=== PATIENT | female | born 1975 | race Caucasian/White ===

== ENCOUNTER 2016-07-02 17:54 | Emergency (ER) | payer OTHER ==
[~2016-07-02] VITALS: Ht 154.9 cm; Wt 54.4 kg
[~2016-07-02 17:54] MED LIST: CRESTOR10 M1 PO; POLYTRIM EYE DR10 ML OPH
--- NOTE | 2016-07-02 18:05 | ED GENERAL ADULT ---
History of Present Illness General Chief Complaint: General Adult Stated Complaint: EXPOSURE TO CYANIDE Source: patient Exam Limitations: no limitations Vital Signs & Intake/Output Vital Signs & Intake/Output Vital Signs Date Time Temp Pulse Resp B/P Pulse O2 O2 Flow FiO2 Ox Delivery Rate 07/02 1759 98.1 79 18 121/83 99 Room Air Allergies Coded Allergies: No Known Allergies (07/02/16) Triage Note: TRIAGE: PT TO ER C/C HEADACHE PAIN SINCE BREATHING IN CYANIDE AT 11 AM. STATES SHE BREATHED IN SOME VAPORS FROM CYANIDE THAT SHE WAS USING TO DO A TEST. WHEN ASKED IF IT IS A WORK RELATED INJURY RESPONDS THAT SHE DOES NOT WISH TO FILL OUT A WORK INJURY REPORT. Triage Nurses Notes Reviewed? yes Onset: Abrupt Duration: 7 hrs Timing: single episode today Injury Environment: work Severity: moderate No Modifying Factors: none Associated Symptoms: nausea : No Patient currently breastfeeds: No HPI: This is a 40-year-old female who presents to the ER for chief complaint of frontal headache rated 4 out of 10 as well as some nausea after exposure to fumes of cyanide this morning. 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 She states that generally the test tube should be fully entered the foot but she Did closer to her and states that when she took up with the cyanide she immediately developed a headache. She had a persistent headache all day long. It has not worsened. No chest pain or shortness of breath. No cough. When she was driving home she called her mother who is a nurse who encouraged her to come to the hospital for evaluation. The patient states that she spoke to poison control and the control systems developer advised her to come to the hospital to have a lactic acid drawn. Patient is without any respiratory symptoms. Headache is rated 4-10 as well as some mild nausea. Patient does not want to be medicated for either of those things. History of similar exposures in the past. She states that usually the headache would've gone away by now. No visual symptoms. She had some eye itching in her left eye earlier which is since resolved. (MOHINDER SOTOMAYOR,DILEEP) Reconcile Medications Naproxen Sodium 550 MG TABLET 1 TAB PO BID PRN MENSTRUAL CRAMPS (Reported) Ondansetron (Zofran Odt) 4 MG TAB.RAPDIS 1 TAB SL TID PRN NAUSEA Rosuvastatin Calcium (Crestor) 10 MG TABLET 1 TAB PO DAILY CHOLESTEROL ( Reported) (VITA SOTOMAYOR,ALESSIA Kidd) Past History Travel History Traveled to [place] past 21 day No Medical History Any Pertinent Medical History? see below for history Neurological: NONE EENT: NONE Cardiovascular: hyperlipidemia Respiratory: NONE Gastrointestinal: NONE Hepatic: NONE Renal: NONE Musculoskeletal: NONE Psychiatric: NONE Endocrine: NONE Blood Disorders: NONE Cancer(s): NONE CARE CONSULTANT/Reproductive: NONE Surgical History Surgical History: non-contributory Psychosocial History What is your primary language Macedonian Tobacco Use: Never used ETOH Use: denies use Illicit Drug Use: denies illicit drug use Family History Hx Contributory? No (DILEEP VINES MD) Review of Systems Review of Systems Constitutional: Denies: chills, fever. EENTM: Reports: see HPI. Respiratory: Denies: cough, short of breath. Cardiovascular: Denies: chest pain, palpitations. GI: Reports: nausea. Denies: abdominal pain. Genitourinary: Reports: no symptoms. Musculoskeletal: Reports: no symptoms. Skin: Reports: no symptoms. Neurological/Psychological: Reports: headache. Denies: numbness, tingling. Hematologic/Endocrine: Denies: bleeding. Immunologic/Allergic: Reports: no symptoms. All Other Systems: Reviewed and Negative (DILEEP VINES MD) Physical Exam Physical Exam General Appearance: well developed/nourished, alert, awake, anxious Head: atraumatic, normal appearance Eyes: Bilateral: normal appearance, PERRL, EOMI. Ears, Nose, Throat: normal pharynx, normal ENT inspection Neck: normal inspection, supple, full range of motion Respiratory: normal breath sounds, chest non-tender, no respiratory distress Cardiovascular: regular rate/rhythm Peripheral Pulses: 2+ radial (R), 2+ radial (L) Gastrointestinal: normal bowel sounds, soft, non-tender Extremities: normal inspection, normal capillary refill, normal range of motion, no edema Neurologic/Psych: no motor/sensory deficits, awake, alert, oriented x 3, ANXIOUS Skin: intact, normal color, warm/dry Core Measures ACS in differential dx? No CVA/TIA Diagnosis: No Severe Sepsis Present: No Septic Shock Present: No (DILEEP VINES MD) Progress Differential Diagnoses I considered the following diagnoses in my evaluation of the patient: [CYANIDE EXPOSURE, CYANIDE TOXICITY] Plan of Care: Orders Procedure Date/time Status MIXED VENOUS BLOOD GAS (GEN) 07/02 1810 Active LACTIC ACID 07/02 1810 Complete COMPREHENSIVE METABOLIC PANEL 07/02 1810 Complete CBC WITHOUT DIFFERENTIAL 07/02 1810 Complete Laboratory Tests 07/02/161944: Bicarbonate Actual 24, Mixed VBG pH 7.43 H, Mixed VBG pCO2 37 L, Mixed VBG O2 Saturation 29 L, Carboxyhemoglobin 0.2 L, O2 Concentration % R/A, Phlebotomy Draw Site VENOUS 07/02/161831: Anion Gap 12, Estimated GFR > 60, BUN/Creatinine Ratio 20.0, Glucose 94, Lactic Acid 0.9, Calcium 9.7, Total Bilirubin 0.8, AST 26, ALT 33, Alkaline Phosphatase 51, Total Protein 7.1, Albumin 4.5, Globulin 2.6, Albumin/Globulin Ratio 1.7, CBC w Diff NO MAN DIFF REQ, RBC 4.53, MCV 90.3, MCH 30.9, RDW 13.3, MPV 7.4, Gran % 67.3, Lymphocytes % 25.9, Monocytes % 5.2, Eosinophils % 1.1, Basophils % 0.5, Absolute Granulocytes 5.3, Absolute Lymphocytes 2.1, Absolute Monocytes 0.4 , Absolute Eosinophils 0.1, Absolute Basophils 0, PUBS MCHC 34.2 Case discussed with Celina Torre from Poison Control Center who spoke to the patient earlier. Similarly they recommended checking a lactic acid level. Vital signs are stable which they also wanted to have it evaluated. Patient informed. (DILEEP VINES MD) Initial ED EKG: none Hand-Off Endorsed To: VITA SOTOMAYOR,ALESSIA Kidd Endorsed Time: 1900 Pending: labs (DILEEP VINES MD) Departure Departure Disposition: STILL A PATIENT Condition: Stable Clinical Impression Primary Impression: Cyanides causing toxic effect Referrals: JIMMY SOTOMAYOR,MARILU Garcia (PCP/Family) Departure Forms: Customer Survey General Discharge Information (DILEEP VINES MD) Departure Prescriptions: Current Visit Scripts Ondansetron (Zofran Odt) 1 TAB SL TID PRN NAUSEA #10 TAB Ref 1 Comments 07/02/16, 20:00.... Pt feeling better... benign labs, negative lactic acid... benign exam at discharge. encouraged close follow up. (VITA SOTOMAYOR,ALESSIA Kidd) Critical Care Note Critical Care Note Critical Care Time: non-applicable (MOHINDER SOTOMAYOR,DILEEP)
[2016-07-02 18:50] LABS: ABSOLUTE BASOPHIL COUNT 0 /CUMM (0.0-0.2); ABSOLUTE EOSINOPHIL COUNT 0.1 /CUMM (0.0-0.7); ABSOLUTE GRANULOCYTE CT 5.3 /CUMM (1.4-6.5); ABSOLUTE LYMPH COUNT 2.1 /CUMM (1.2-3.4); ABSOLUTE MONOCYTE COUNT 0.4 /CUMM (0.10-0.60); BASOPHIL % 0.5 % (0.0-2.0); EOSINOPHIL % 1.1 % (0-5); GRANULOCYTE % 67.3 % (42.2-75.2); HEMATOCRIT 40.9 % (37-47); MEAN CORPUSCULAR HGB 30.9 PG (27.0-31.0); MEAN CORPUSCULAR HGB CONC 34.2 G/DL (33.0-37.0); MEAN CORPUSCULAR VOLUME 90.3 FL (81.0-99.0); MEAN PLATELET VOLUME 7.4 FL (7.4-10.4); PLATELET COUNT 383 /CUMM (130-400); RBC DISTRIBUTION WIDTH 13.3 % (11.5-14.5); RED BLOOD CELL CT 4.53 /CUMM (4.20-5.40); WHITE BLOOD CELL COUNT 7.9 /CUMM (4.8-10.8)
[2016-07-02] MEDS ORDERED: NAPROXEN SODIU550 M1 PO (19:28)
[2016-07-02] MEDS ORDERED: ZOFRAN ODT4 M1 SL (20:00)
[2016-07-02 20:27] VITALS: BP 136/86
== END 2016-07-02 20:27 ==
LOC: ERH 17:54
PROVIDERS: Emergency Medicine
DX: T65.0X1A Toxic effect of cyanides, accidental (unintentional), initial encounter (principal)
CPT/HCPCS: J3101